=== PATIENT | male | born 1975 | race Caucasian/White ===

== ENCOUNTER 2025-08-20 06:20 | Day surgery (SDC) | payer OTHER, SELFPAY ==
--- NOTE | 2025-08-19 16:10 | PTCARENOTE ---
Spoke with son Aditya- stated patients last dose of Mounjaro was 08/18. Dr. Rainey notified- patient to be restricted to clear liqs for remainder of day today and NPO 8 hours preop. Left message at number provided ([phone]) and expressed the
importance that family return call today so staff could provide additional fasting instructions.
[2025-08-20] VITALS (10 sets, daily range): BP systolic 128–155; BP diastolic 85–108; BMI 30.4
[2025-08-20 12:08] LABS: Glucose - Point of Care 95 mg/dl (70-99)
[2025-08-20] MEDS: NORMOSOL-R/PLASMALYTE-A 1000 IV (12:10)
[2025-08-20] MEDS: TYLENOL 1000 MG PO (12:19)
[2025-08-20] MEDS: CELEBREX 200 MG PO (12:19)
--- NOTE | 2025-08-23 00:11 | OR.RPT ---
Operative Report
Operative Report
OPERATIVE REPORT
Patient Name: Usman Ibarra

Date of Surgery:�08/20/2025
Surgeon:�Aditya Virgen DPM
Hardware Sales Assistant:�Aditya Torres DPM
Preoperative Diagnosis:
Painful retained hardware, right ankle
Right ankle synovitis
Postoperative Diagnosis:
Same as preoperative
Procedure Performed:
Right ankle arthroscopy with extensive debridement CPT 31215
Removal of syndesmotic screw (distal screw only), right ankle CPT 13529
Anesthesia:�General with 20ccs of 0.5% bupivacaine plain
Hemostasis:�Thigh tourniquet which remained inflated at 325mmHg for the entirety of the procedure
Estimated Blood Loss:�<25 mL
Complications:�None
Specimens:�None
Indications for Procedure:
The patient is a 50-year-old male who sustained a right ankle fracture approximately 7 months ago, treated operatively with open reduction and internal fixation (ORIF) including syndesmotic stabilization using two syndesmotic screws. Despite
adequate bone healing, he has experienced persistent pain, stiffness, and decreased range of motion�of the right ankle. After discussion of nonoperative options, the patient elected to proceed with ankle arthroscopy for diagnostic evaluation and
debridement, as well as hardware removal�to alleviate symptoms.
Prior to surgery, the patient was counseled that during removal of the syndesmotic screws, there was a possibility that one or more screws could fracture at the plate interface. The patient specifically requested that if a screw head were to break,
the plate and remaining screw fragment be left in place�to avoid further dissection or destabilization of the hardware construct.
Procedure in Detail:
The patient was brought to the operating room and placed supine on the operating table. Following administration of anesthesia, a thigh tourniquet�was applied and the right lower extremity�was prepped and draped in the usual sterile fashion. The
patient was placed on a thigh brand and an non-invasive ankle distractor was applied. The thigh tourniquet was inflated after exsanguination.
Arthroscopy:
Standard anteromedial and anterolateral arthroscopic portals�were created adjacent to the ankle joint. The joint was insufflated with saline, and an arthroscope was introduced. Diagnostic arthroscopy revealed hypertrophic synovitis�within the
anterior joint line and fibrous adhesions consistent with postoperative scar formation.
Using a motorized shaver, extensive debridement�was performed to remove synovial tissue, scar bands, and loose debris from the anterior, medial, and lateral gutters. The talar dome and tibial plafond were inspected, showing mild chondral fraying but
no full-thickness defects. The joint was thoroughly irrigated, and the arthroscopic instruments were withdrawn.
Syndesmotic Screw Removal:
Attention was then directed to the lateral aspect of the ankle overlying the prior surgical incision. The previous lateral incision�was reopened, and dissection was carried down carefully through scar tissue to expose the lateral fibular plate�and
syndesmotic screws.
Under fluoroscopic guidance, the distal syndesmotic screw�was identified and removed uneventfully using the appropriate charter coach driver. The proximal syndesmotic screw, however, was noted to have a fractured head�at the plate interface upon attempted
removal. The screw shaft remained buried within the tibia and fibula, well below the cortical surface.
Given the preoperative discussion and the patient�s explicit wishes to avoid disturbing the plate or risking bone destabilization, the decision was made to leave the broken proximal screw fragment in situ. The remaining hardware was stable and not
symptomatic at the time of surgery.
The surgical field was copiously irrigated, hemostasis achieved, and the wound was closed in layers using absorbable sutures for the subcutaneous tissue and prolene for the skin. A sterile compressive dressing was applied, and the patient�s ankle
was placed in a CAM boot�for immobilization.
The patient tolerated the procedure well and was transferred to the recovery area in stable condition.
Postoperative Plan:
Partial weight-bearing to right lower extremity in CAM boot for 2 weeks.
Ice, elevation, and pain management as needed.
Follow-up in 10�14 days for wound check and suture removal.
Begin physical therapy for ankle range of motion and strengthening once incisions have healed.
Monitor for signs of infection or recurrence of pain related to retained hardware fragment.
== END 2025-08-20 16:25 | disposition home or self-care (01) ==
LOC: SDS 06:20
PROVIDERS: ATTENDING PHYSICIAN Student in an Organized Health Care Education/Training Program
DX: T84.84XA Pain due to internal orthopedic prosthetic devices, implants and grafts, initial encounter (principal); Y83.1 Surgical operation with implant of artificial internal device as the cause of abnormal reaction of the patient, or of later complication, without mention of misadventure at the time of the procedure; M65.971 Unspecified synovitis and tenosynovitis, right ankle and foot
CPT/HCPCS: 29898; 20680; 82962